=== PATIENT | male | born 1950 | race Caucasian/White ===

== ENCOUNTER 2016-12-29 06:19 | Inpatient (IN) | payer OTHER, BC ==
[2016-12-29] VITALS (11 sets, daily range): BP systolic 101–135; BP diastolic 61–80
[~2016-12-29] VITALS: Ht 175.3 cm; Wt 74.5 kg
[~2016-12-29 06:19] MED LIST: BUTALBITAL-ACE1 EACH PO; CELEBREX200 MG PO; DECADRON4 MG PO; ESSENTIAL DAIL1 EACH PO; LIPITOR80 MG PO; VALTREX1000 MG PO
[2016-12-29] MEDS ORDERED: ONDANSETRON HCL4 MG PO (07:05)
[2016-12-29 15:48] LABS: METH RESISTANT S AUREUS PCR NEGATIVE (NEGATIVE)
[2016-12-29 15:54] LABS: PROBE CHECK PASS; SPECIMEN PROCESSING CONTROL PASS
[2016-12-30] VITALS (9 sets, daily range): BP systolic 96–128; BP diastolic 49–78
[2016-12-30] MEDS ORDERED: HYDROCODON-ACE1 EAC7 PO (09:44)
== END 2016-12-30 11:35 | disposition home or self-care (01) | DRG 55 ==
LOC: 2SOUTH 06:19 → 4WEST 14:14 → 2SOUTH 14:53 → 4WEST 12-30 11:35
PROVIDERS: Neurological Surgery
PROC: 00B03ZX Excision of Brain, Percutaneous Approach, Diagnostic (ICD-10-PCS; principal; 2016-12-29)
DX: C71.0 Malignant neoplasm of cerebrum, except lobes and ventricles (principal); I10 Essential (primary) hypertension; Z88.0 Allergy status to penicillin; Z85.820 Personal history of malignant melanoma of skin; Z85.828 Personal history of other malignant neoplasm of skin
CPT/HCPCS: 70450; 77021; 87641; 88307; 88331; 88341 TC; 88342 TC; C1713; J0690; J1100; J1170; J2405; J2710; J3010; J3480; J8540; S0028

== ENCOUNTER 2017-01-07 16:02 | Emergency (ER) | payer OTHER, BC ==
[~2017-01-07] VITALS: Ht 175.3 cm; Wt 78.4 kg
[~2017-01-07 16:02] MED LIST changes: +HYDROCODON-ACE1 EAC7 PO; +ONDANSETRON HCL4 MG PO
[2017-01-07 18:04] LABS: PROTHROMBIN TIME 10.4 (9.2-11.2); PTT 24.7 (25-32)
[2017-01-07 18:05] LABS: CHLORIDE 108 mEq/L (99-109); POTASSIUM 4.6 mEq/L (3.7-5.4); SODIUM 139 mEq/L (136-147)
[2017-01-07 18:06] LABS: GLUCOSE 104 mg/dL (70-99)
[2017-01-07 18:08] LABS: ANION GAP 9 MEQ/L (2-14)
[2017-01-07 18:10] LABS: GFR ESTIMATE (CALCULATED) > 59 mL/min/
[2017-01-07 18:11] LABS: UREA NITROGEN (BUN) 19 mg/dL (9-23)
[2017-01-07] MEDS ORDERED: WARFARIN SODIUM5 MG PO (19:57)
[2017-01-07] MEDS ORDERED: LOVENOX80 MG/0.8 SC (19:57)
[2017-01-07 20:31] VITALS: BP 135/89
== END 2017-01-07 20:31 | disposition home or self-care (01) ==
LOC: EME 16:02
PROVIDERS: Emergency Medicine
DX: I82.401 Acute embolism and thrombosis of unspecified deep veins of right lower extremity (principal); R73.9 Hyperglycemia, unspecified; E78.5 Hyperlipidemia, unspecified; Z98.890 Other specified postprocedural states; Z88.0 Allergy status to penicillin
CPT/HCPCS: 80048; 85610; 85730; 99281; 99284; J1650

== ENCOUNTER 2017-01-12 08:36 | Inpatient (IN) | payer OTHER, BC ==
[~2017-01-12] VITALS: Ht 175.3 cm; Wt 72.9 kg
[~2017-01-12 08:36] MED LIST changes: +LOVENOX80 MG/0.8 SC; +WARFARIN SODIUM5 MG PO
[2017-01-12 09:33] LABS: HEMATOCRIT 42.5 % (38.0-50.0); MCH 34.5 PG (29.0-34.0); MCHC 33.4 G/DL (30.0-36.0); MCV 103.4 FL (86-99); MEAN PLAT.VOLUME 9.9 uM^3 (9.0-12.4); PLATELET COUNT 144 K/uL (156-360); RBC DIS.WIDTH-CV 13.2 % (11.8-14.6); RBC DIS.WIDTH-SD 50.7 % (39-53); RED BLOOD COUNT 4.11 M/uL (4.00-5.50); WHITE BLOOD COUNT 9.3 K/uL (4.1-10.2)
[2017-01-12 09:46] LABS: CHLORIDE 108 mEq/L (99-109); POTASSIUM 4.7 mEq/L (3.7-5.4); SODIUM 138 mEq/L (136-147)
[2017-01-12 09:48] LABS: GLUCOSE 90 mg/dL (70-99)
[2017-01-12 09:49] LABS: ANION GAP 10 MEQ/L (2-14)
[2017-01-12 09:50] LABS: D-DIMER ELISA > 4.00 mg/L FEU (< 0.57)
[2017-01-12 09:52] LABS: GFR ESTIMATE (CALCULATED) > 59 mL/min/
[2017-01-12 09:53] LABS: UREA NITROGEN (BUN) 19 mg/dL (9-23)
[2017-01-12 09:55] LABS: INTER. NORMALIZED RATIO 4.6; PTT 36.9 (25-32)
[2017-01-12 10:00] LABS: TROP-I INTERPRETATION NEGATIVE; TROPONIN-I < 0.01 ng/mL (0.0-0.30)
[2017-01-12] MEDS ORDERED: FIORICET,ESG1 TABLET PO (12:33)
[2017-01-12] MEDS ORDERED: ONDANSETRON ODT4 MG PO (12:36)
[2017-01-12] MEDS ORDERED: WARFARIN SODIUM5 MG PO (12:37)
[2017-01-12] MEDS ORDERED: SUMATRIPTAN SU100 MG PO (12:38)
[2017-01-12] MEDS ORDERED: CYANOCOBALAM1000 MCG PO (12:38)
[2017-01-12] MEDS ORDERED: VITAMIN E1000 UNIT PO (12:39)
[2017-01-12] MEDS ORDERED: VITAMIN D31000 UNIT PO (12:39)
[2017-01-12 20:17] LABS: INTER. NORMALIZED RATIO 2.9; PROTHROMBIN TIME 30.4 (9.2-11.2)
[2017-01-12 20:18] VITALS: BP 124/58
[2017-01-12 20:18] LABS: PTT 117.5 (25-32)
[2017-01-12 23:39] VITALS: BP 116/58
[2017-01-13 04:50] VITALS: BP 103/54
[2017-01-13 06:16] LABS: HEMATOCRIT 42.2 % (38.0-50.0); MCHC 33.6 G/DL (30.0-36.0); MCV 103.9 FL (86-99); MEAN PLAT.VOLUME 9.5 uM^3 (9.0-12.4); PLATELET COUNT 135 K/uL (156-360); RBC DIS.WIDTH-CV 13.4 % (11.8-14.6); RBC DIS.WIDTH-SD 51.9 % (39-53); RED BLOOD COUNT 4.06 M/uL (4.00-5.50); WHITE BLOOD COUNT 8.3 K/uL (4.1-10.2)
[2017-01-13 06:36] LABS: PTT 84.6 (25-32)
[2017-01-13 06:52] VITALS: BP 126/63
[2017-01-13 07:06] LABS: ANION GAP 8 MEQ/L (2-14); CHLORIDE 104 MEQ/L (99-109); GFR ESTIMATE (CALCULATED) > 59 mL/min/; GLUCOSE 101 mg/dL (70-99); POTASSIUM 4.4 MEQ/L (3.7-5.4); SAMPLE HEMOLYSIS CHECK 1; SAMPLE ICTERIC CHECK 0; SAMPLE LIPEMIA CHECK 0; SODIUM 140 MEQ/L (136-147); UREA NITROGEN (BUN) 23 mg/dL (9-23)
[2017-01-13 09:29] LABS: INTER. NORMALIZED RATIO 1.8; PROTHROMBIN TIME 19.1 (9.2-11.2)
[2017-01-13 17:03] VITALS: BP 136/81
[2017-01-13 19:27] VITALS: BP 123/61
[2017-01-13 23:02] VITALS: BP 127/75
[2017-01-14 03:25] VITALS: BP 116/70
[2017-01-14 07:36] VITALS: BP 120/59
[2017-01-14] MEDS ORDERED: ELIQUIS5 MG PO (09:23)
[2017-01-14 11:16] VITALS: BP 135/80
== END 2017-01-14 11:35 | disposition home or self-care (01) | DRG 175 ==
LOC: EME 08:36 → 5EAST 15:29 → EDOF 15:29 → 5EAST 19:57
PROVIDERS: Hospitalist; Nurse Practitioner Family
DX: I26.99 Other pulmonary embolism without acute cor pulmonale (principal); G93.6 Cerebral edema; G93.5 Compression of brain; C71.9 Malignant neoplasm of brain, unspecified; D68.69 Other thrombophilia; Z86.718 Personal history of other venous thrombosis and embolism; K21.9 Gastro-esophageal reflux disease without esophagitis; E78.2 Mixed hyperlipidemia; Z85.828 Personal history of other malignant neoplasm of skin; Z66 Do not resuscitate
CPT/HCPCS: 70553; 71275; 80048; 84484; 85027; 85379; 85610; 85730; 93005; 99281; 99285; J1650; J8540